=== PATIENT | male | born 1935 | race Caucasian/White ===

== ENCOUNTER 2016-10-24 13:44 | Observation (INO) | payer MEDICARE ==
[~2016-10-24 13:44] MED LIST: ADVIL200 MG PO; ALKA-SELTZER AN1 CAP PO; AN ANTIBIOTIC PO; HYDROCODONE/APAP; IBUPROFEN 200200 MG PO; MULTI VITAMINS1 TAB PO; SINUS PO; TYLENOL 500MG500 MG PO
[2016-10-24 16:21] VITALS: BP 136/64; PULSE 85; TEMP 98.4
[2016-10-24 20:14] VITALS: BP 99/52; PULSE 36; TEMP 98.6
[2016-10-25] VITALS (11 sets, daily range): BP systolic 108–167; BP diastolic 53–90; PULSE 33–89; TEMP 97.5–98.7
[2016-10-25 07:28] LABS: BASO # 0.1 (0.0-0.2); BASO % 0.7 % (0.0-2.0); EOS # 0.3 (0.0-0.7); EOS % 4.9 % (0-4.0); GRAN # 3.8 (1.4-6.5); GRAN % 55.4 % (42.2-75.2); HEMATOCRIT 41.4 % (42.0-52.0); HEMOGLOBIN 13.9 g/dl (13.5-18.0); LYMPH # 2.1 (1.2-3.4); LYMPH % 30.2 % (20.0-51.0); MEAN CELL VOLUME 92 fl (80.0-100.0); MEAN CORPUSCULAR HEMOGLOBIN 31 pg (27.0-31.0); MEAN CORPUSCULAR HGB CONC 34 g/dl (33.0-37.0); MEAN PLATELET VOLUME 12.7 fl (7.4-10.4); MONO # 0.6 (0.1-0.6); MONO % 8.5 % (1.7-9.3); PLATELET COUNT 133 K/mm3 (130-400); REDCELL DISTRIBUTION WIDTH-CV 13.8 % (11.5-14.5); WHITE BLOOD COUNT 6.9 K/mm3 (4.8-10.8)
[2016-10-25 07:29] LABS: INR 1.1 (0.8-3.0); PROTHROMBIN TIME 12.7 SECONDS (9.7-12.8)
[2016-10-25 07:42] LABS: CALCIUM 8.6 mg/dL (8.4-10.2); CREATININE, serum 1.24 mg/dL (0.66-1.25); POTASSIUM 4.2 mmol/L (3.4-5.0)
[2016-10-26 03:11] VITALS: BP 140/93; PULSE 62; TEMP 98.4
[2016-10-26 08:30] VITALS: BP 108/64; PULSE 67; TEMP 98
[2016-10-26 11:42] VITALS: BP 126/79; PULSE 63; TEMP 97.5
[2016-10-26] MEDS ORDERED: CLEOCIN HCL300 MG PO (12:27)
== END 2016-10-26 13:09 | disposition home or self-care (01) ==
LOC: MEDICAL 13:44
PROVIDERS: Internal Medicine Interventional Cardiology
DX: I49.5 Sick sinus syndrome (principal); R55 Syncope and collapse; Z87.891 Personal history of nicotine dependence; N40.0 Benign prostatic hyperplasia without lower urinary tract symptoms
CPT/HCPCS: C1785; C1894; C1898; G0378; G0379; J2250; J3010; J3370; J7030; J7050